=== PATIENT | male | born 1995 | race Caucasian/White ===

== ENCOUNTER 2017-10-31 11:44 | Emergency (ER) | payer SELFPAY ==
[2017-10-31 11:45] VITALS: BP 120/79; PULSE 91; RESP 16; TEMP 36.4; O2SAT 98; BMI 38.4
--- NOTE | 2017-10-31 12:13 | EKG12_ITS ---
Test Reason : SYNCOPE Blood Pressure : / mmHG Vent. Rate : 094 BPM Atrial Rate : 094 BPM P-R Int : 142 ms QRS Dur : 082 ms QT Int : 334 ms P-R-T Axes : 069 031 037 degrees QTc Int : 417 ms Normal sinus rhythm Normal ECG Confirmed by ADRIENNE FRANKEL ([id number]), editor in chief KEN HIRSCH ([id number] on 11/03/2017 1:35:57 PM Referred By: NILSA Confirmed By:ADRIENNE FRANKEL
[2017-10-31 12:26] LABS: Absolute Lymphocyte Count 2.09 X10^3/ul (0.83-4.51); Absolute Neutrophil Count 8.1 X10^3/uL (2.0-7.7); Basophil# 0.03 X10^3/uL; Basophil% 0.3 % (0-1); Eosinophil# 0.12 X10^3/uL; Eosinophils% 1.1 % (0-5); Hematocrit 55.9 % (40-54); Hemoglobin 19.6 g/dl (13.0-16.5); Lymphocyte # 2.09 X10^3/ul (4.0); Lymphocyte % 19.1 % (19-41); Mean Corp Hgb Conc 35.1 g/gl (32-36); Mean Corpuscular Hgb 29.2 pg (27.0-32.0); Mean Corpuscular Volume 83.3 fL (80-94); Mean Platelet Vol. 10.6 fl (6.2-12.0); Monocyte# 0.62 X10^3/uL; Monocyte% 5.7 % (0-10); Neutrophil # 8.05 X10^3/uL (2.7-7.7); Neutrophil % 73.5 % (47-70); POSITIVE COUNT NO; POSITIVE DIFFERENTIAL NO; POSITIVE MORPHOLOGY NO; Platelet Count 261 K/mm3 (150-450); RBC Distribution Width SD 39.9 fl (35.1-43.9); Red Blood Count 6.71 M/mm3 (4.6-6.2); White Blood Count 10.9 K/mm3 (4.4-11.0)
[2017-10-31 13:25] LABS: Anion Gap 8 (5-15); BUN 14 mg/dL (7-18); BUN/Creat Ratio 14.7 RATIO (10-20); Calcium,Total 8.1 mg/dL (8.5-10.1); Chloride 104 mmol/L (98-107); Creatinine, Serum 0.95 mg/dL (0.70-1.30); EST Glomerular Filtration Rate 107 mL/min (>60); Est Glom Filt Rate - Afr Amer 130 mL/min (>60); Estimated Creatinine Clearance 133.21 ml/min; Glucose 155 mg/dL (74-106); Potassium 3.6 mmol/L (3.5-5.1); Sodium Level 136 mmol/L (136-145)
--- NOTE | 2017-10-31 13:35 | ED.VISSUMM ---
- ER Visit Summary Date of Service: 10/31/17 Chief Complaint: Syncope History of Present Illness: The patient is a 21 M who walks to [facility] after his car ran out of gas. Patient states he felt very cold from walking outside in the heat seem to be turned up inside the store. He sat down on a bench to tie his shoe and then stood up to walk around the store. While walking around the store patient had 3 episodes of near syncope and had to sit down for a moment. He states he felt very lightheaded as if he had stood up too fast but the symptoms just did not go away quickly. He denies chest pain or palpitations. He states he currently has no symptoms. Physical Examination: Vital signs are unremarkable. Patient is in no acute distress and is nontoxic appearing. Head and neck examination is normal. Heart is regular rate and rhythm. Palpable pulses are noted throughout. Lungs are clear with good air movement throughout. Abdomen is soft and nontender. Bowel sounds are noted. Extremity examination is unremarkable with full range of motion. Neurologic examination reveals no focal deficits. Test Results: EKG is sinus at 94 with no sign of acute ischemia. CBC revealed hemoglobin of 19.6. On review of prior records hemoglobin was 17.1 in October 2016 and 16.5 in September 2014. Chemistry studies are unremarkable. Emergency Department Course and Treatment: Patient was given IV fluids here. Patient states he had been seen by about abnormal blood levels in the past. I will give him Dr. Renteria's number for follow-up. Treatment Plan: [] Disposition: Discharge Impression: 1. Near syncope 2. Polycythemia This note was generated with [employer] dictation software. It may contain incorrect words, spelling, and punctuation that were not noted in review of the chart prior to signing ED Disposition - Plan for ED Patient: Chief Complaint: Syncope Referrals: Farzaneh Wong MD [Primary Care Provider] -
--- NOTE | 2017-10-31 13:37 | ED.DEP ---
ED Disposition - Plan for ED Patient: Disposition: Home or Assisted Living Chief Complaint: Syncope Instructions: ED Near Syncope Unkn Referrals: Fazraneh Wong MD [Primary Care Provider] - 1 Week Francis Renteria MD [STAFF PHYSICIAN] - As Needed
[2017-10-31 13:46] VITALS: BP 127/51; PULSE 68; RESP 15; O2SAT 97
== END 2017-10-31 13:47 | disposition home or self-care (01) ==
PROVIDERS: Emergency Provider Emergency Medicine; Family Provider Pediatrics; PCP Pediatrics
DX: R55 Syncope and collapse (principal); D75.1 Secondary polycythemia
CPT/HCPCS: 80048; 85025; 93005; 96360; 99285; J7040

== ENCOUNTER 2019-11-13 13:47 | Emergency (ER) | payer MEDICAID, SELFPAY ==
[2019-11-13 13:48] VITALS: BP 137/93; PULSE 92; RESP 16; TEMP 36.8; O2SAT 98; BMI 51.1
--- NOTE | 2019-11-13 14:02 | ED.DCSUM_ITS ---
- ER Visit Summary Date of Service: 11/13/19 Chief Complaint: Laceration to left ring and long fingers History of Present Illness: The patient is a 23 M who presents with a laceration to his left ring and long fingers that occurred today. Patient states he got a new knife and was trying to open it. Patient states he was trying to pull on the blade to open it and did not realize there was a button that he had to push in order to open it. Patient states that while he was pulling on the blade he hit the button and the blade opened. Patient states it cut his left ring and long fingers. Patient is unsure of his last tetanus. Patient states the bleeding is been persistent. Patient admits to tingling in the tips of his ring and long fingers but denies any weakness. Patient is left-hand dominant. Patient describes his pain as throbbing and is worse with certain movements. Physical Examination: Vital signs are stable. Patient is afebrile. Patient is in no acute distress. Musculoskeletal exam reveals a 2 cm curvilinear flap laceration over the tip of the distal phalanx of the left long finger. There is also a 2 cm linear laceration through the nail plate and nail bed of the left ring finger. There is minimal gapping of the wound margins of the ring finger. There is mild gapping of the wound margins of the long finger. There is some mild bleeding noted. Sensation was intact to light touch in all digits. Capillary refill was less than 2 seconds in all digits. Strength is 5/5 in flexion and extension of the MP, PIP, and DIP joints of the left long and ring fingers. Emergency Department Course and Treatment: The left long finger was cleaned and irrigated with copious amounts normal saline. The left long finger was anesthetized 1% plain lidocaine via digital block. The wound was closed with 4 simple interrupted #4-0 nylon sutures under sterile technique. Bacitracin dressing was applied. Patient tolerated procedure well. The laceration of the left ring finger was left to heal without any sutures. There is minimal gapping. It is through the nailbed and nail plate. Patient was advised that this would heal better without sutures. Patient was instructed to keep the wounds clean and dry. Patient was instructed to follow-up with his primary care physician in 5 to 7 days for wound recheck and suture removal. Patient understood and was agreeable with the plan. All questions were answered. Fiorella patel understood and was agreeable with the plan. All questions were answered. Disposition: Discharge home Impression: Lacerations to left long and ring fingers This note was generated with [employer] dictation software. It may contain incorrect words, spelling, and punctuation that were not noted in review of the chart prior to signing ED Disposition - Plan for ED Patient: Disposition: Home or Assisted Living Diagnosis: Laceration of left middle finger w/o foreign body w/o damage to nail, Laceration of left ring finger with damage to nail w/o foreign body Instructions: ED Laceration Hand Referrals: Farzaneh Wong MD [STAFF PHYSICIAN] - 5 Days for suture removal
[2019-11-13] MEDS: Diphth,Pertuss(Acell),Tet Vac 0.5 ML Vial IM (14:21)
== END 2019-11-13 16:15 | disposition home or self-care (01) ==
PROVIDERS: Emergency Provider Emergency Medicine
DX: S61.213A Laceration without foreign body of left middle finger without damage to nail, initial encounter (principal); S61.315A Laceration without foreign body of left ring finger with damage to nail, initial encounter; W26.0XXA Contact with knife, initial encounter; Y93.9 Activity, unspecified; Y92.9 Unspecified place or not applicable; Y99.9 Unspecified external cause status; Z72.0 Tobacco use; Z23 Encounter for immunization
CPT/HCPCS: 12001; 90471; 90715; 99283

== ENCOUNTER 2020-01-20 10:31 | Emergency (ER) | payer MEDICAID, SELFPAY ==
[2020-01-20 10:32] VITALS: BP 153/95; PULSE 107; RESP 18; TEMP 36.3; O2SAT 97; BMI 47.8
--- NOTE | 2020-01-20 11:01 | ED.DCSUM_ITS ---
- ER Visit Summary Date of Service: 01/20/20 Chief Complaint: Possible infection from IV drug use History of Present Illness: The patient is a 24 M who presents with possible infection in both elbow areas from IV drug use. Patient states the areas have been reddened and swollen over the past 5 days. Patient states they started to get better. Patient states he has been using warm compresses which have been helping. Patient states the pain is worse with extension of the elbows. Patient describes pain as dull. Patient denies any fevers or chills. Patient denies any discharge or drainage. Patient denies any paresthesias or weakness. Physical Examination: Vital signs are stable. Patient is afebrile. Patient is in no acute distress. Musculoskeletal exam shows some mild tenderness in the antecubital areas bilaterally. There is some ecchymosis and induration. There is no erythema or warmth. There is no fluctuance. I do not appreciate any abscess. There is full range of motion of the elbows bilaterally. Strength is 5/5 in the radial, median, and ulnar areas bilaterally. Sensation was intact to light touch in the radial, median, and ulnar areas bilaterally. Radial pulses are equal bilaterally. Capillary refill is less than 2 seconds in all digits. Emergency Department Course and Treatment: [id number] ultrasound was used to look for possible abscess. I did not see any abscesses in the antecubital areas bilaterally. I did not see any foreign bodies. Patient was given a dose of Keflex here and was given a prescription for Keflex. Patient was instructed to continue using warm compresses. Patient was instructed to follow-up with 180 as scheduled. Patient understood and was agreeable with the plan. All questions were answered. Disposition: Discharge home Impression: Cellulitis bilateral elbows This note was generated with [employer] dictation software. It may contain incorrect words, spelling, and punctuation that were not noted in review of the chart prior to signing ED Disposition - Plan for ED Patient: Disposition: Home or Assisted Living Diagnosis: Cellulitis, History of intravenous drug abuse Prescriptions: Cephalexin [Keflex] 500 mg PO Q6 #40 cap Prescription Printed Referrals: Care Physician,No Primary [Primary Care Provider] - [facility] [STAFF PHYSICIAN] - 3-5 Days
[2020-01-20] MEDS: Cephalexin 500 MG Capsule PO (11:18)
== END 2020-01-20 11:18 | disposition home or self-care (01) ==
LOC: ED 11:07
PROVIDERS: Emergency Provider Emergency Medicine
DX: L03.114 Cellulitis of left upper limb (principal); L03.113 Cellulitis of right upper limb; E66.9 Obesity, unspecified
CPT/HCPCS: 99283

== ENCOUNTER 2021-10-18 19:07 | Emergency (ER) | payer MEDICAID, SELFPAY ==
[2021-10-18 19:08] VITALS: BP 157/91; PULSE 115; RESP 16; TEMP 35.4; O2SAT 99; BMI 42.7
--- NOTE | 2021-10-18 19:47 | EX.ED.DYSGE1 ---
HPI History of Present Illness Chief Complaint: Abscess Narrative Narrative: Patient presents with a left antecubital abscess after IV drug abuse. No fevers chills, this is been ongoing for about a week. He has no chest pain shortness of breath. No other rashes no other injuries. He does not feel ill. [facility] Medical History Overdose Substance abuse Home Medications NK 03/09/20 [History Last Taken Unknown] doxycycline hyclate 100 mg PO BID 10 Days #20 cap 10/18/21 [Rx Last Taken Unknown] Allergy/AdvReac Type Severity Reaction Status Date / Time No Known Allergies Allergy Verified 03/09/20 19:03 Social History Smoking Status: Light Smoker (<10/day) ROS ROS ED ROS Narrative Past medical history: Reviewed Medications: Reviewed Social history: Noncontributory Review of systems: All systems negative except as indicated General: No fever Eyes: No visual changes ENT: No upper airway congestion, normal voice Neck: No neck pain Cardiovascular: No chest pain Respiratory: No shortness of breath or cough Gastrointestinal: No abdominal pain, nausea vomiting or diarrhea Genitourinary: No dysuria Musculoskeletal: Left antecubital abscess Skin: As above Neurological: No memory loss, confusion or any focal weakness Psych: No recent behavioral changes Hematologic: No easy bleeding or easy bruising EXAM Physical Exam Narrative Exam Narrative: Physical exam General: Well nourished, Well developed, No Acute Distress Head: Normocephalic, Atraumatic Eyes: Conjunctiva not pale ENT: Moist mucous membranes Neck: Supple, Nontender, No lymphadenopathy Cardiovascular: Regular rate, Regular rhythm. I listened at all 4 points and there is no murmur. Respiratory: No distress, CTA bilaterally Abdomen: Soft, Nontender, Nondistended Back: Nontender, Normal Inspection. Negative for: CVA tenderness Extremities: There is a 4 cm antecubital abscess which is raised and erythematous. There is no surrounding cellulitis. No lymphadenopathy no axilla tenderness no lymphangitic streaking. Skin: As above Neurological: Alert, Normal Strength, Normal Sensation Psychological: Normal affect Const Vital Signs: 10/18/21 19:08 Temperature 95.8 F L Temperature Source Temporal Pulse Rate 115 H Respiratory Rate 16 Blood Pressure 157/91 H Blood Pressure Mean 113 Pulse Ox 99 Oxygen Delivery Method Room Air MDM MDM MDM Narrative Medical decision making narrative: Abscess was drained, at this time there is no evidence of systemic disease, no murmur or any other rash. I did warn the patient that he could develop endocarditis and valve damage or have sepsis if he continues to do this. He tells me is going to stop. Procedures Other Procedures Procedure(s): Incision and drainage Verbal consent obtained. 1% lidocaine was used, Shur-Clens 11. Blade, I made an elliptical incision and left it open, I used hemostats to probe, copious pus was expectorated. Patient tolerated procedure well Discharge Plan Triage Chief Complaint: Abscess ED Provider: Aniket Dennis Dx/Rx/DC Orders Clinical Impression: Abscess Instructions: ED Abscess Incision And Drainage Prescriptions: New doxycycline hyclate 100 mg capsule 100 mg PO BID 10 Days Qty: 20 RF: 0 No Action NK RF: 0 Primary Care Provider: Care Physician,No Primary Referrals: Care Physician,No Primary [Primary Care Provider] - 2 Days Disposition Disposition: Home, Self Care
--- NOTE | 2021-10-18 20:06 | CM.ED ---
SW Note Referral Source: Case Find Referral Reason: No PCP SW met with patient and he confirmed he has no PCP. SW provided patient with Healthcare Provider Directory. No further issues or concerns voiced. Plan: Resources provided Erica WEBER
[2021-10-18] MEDS: Doxycycline 100 MG CAPSULE PO (20:10)
[2021-10-18 20:13] VITALS: BP 148/90; PULSE 95; RESP 16
== END 2021-10-18 20:14 | disposition home or self-care (01) ==
PROVIDERS: Emergency Provider Emergency Medicine; Visit Provider Emergency Medicine
DX: L02.414 Cutaneous abscess of left upper limb (principal); F19.10 Other psychoactive substance abuse, uncomplicated; F17.200 Nicotine dependence, unspecified, uncomplicated
CPT/HCPCS: 10060; 99283

== ENCOUNTER 2021-11-24 15:53 | Emergency (ER) | payer MEDICAID, SELFPAY ==
[2021-11-24 15:54] VITALS: BP 149/102; PULSE 112; RESP 18; TEMP 36.1; O2SAT 99; BMI 43.9
--- NOTE | 2021-11-24 16:09 | EX.ED.DYSGE1 ---
HPI History of Present Illness Chief Complaint: Abscess Narrative Narrative: Patient with past medical history of previous intravenous drug abuse presents with pain and redness on the dorsum of his right hand. He states yesterday, while he had been clean for quite some time, he injected methamphetamine into the dorsum of his right hand. He felt that it was in a vein and at the last minute may have infiltrated the IV access as he states that he did get high initially, and now presents with pain and redness of his right hand. He has left hand dominant. He has had this previously and was placed on doxycycline. Admittedly, he presents for prescription for doxycycline to catch this while it is still early. He denies any fevers or chills. No nausea or vomiting. No other symptoms. [facility] Medical History Overdose Substance abuse Home Medications doxycycline hyclate 100 mg PO BID 10 Days #20 cap 10/18/21 [Rx Last Taken Unknown] doxycycline hyclate 100 mg PO BID #20 tab 11/24/21 [Rx Last Taken Unknown] Allergy/AdvReac Type Severity Reaction Status Date / Time No Known Allergies Allergy Verified 11/24/21 15:53 Social History Smoking Status: Light Smoker (<10/day) ROS ROS ED ROS Narrative Constitutional: No fever, no chills. HEENT: No sore throat. No neck pain. No loss of vision. No rhinorrhea. Cardiovascular: No chest pain. No palpitations. No pedal edema. Respiratory: No cough, no shortness of breath. Abdominal: No abdominal pain. No nausea. No vomiting. Genitourinary: No dysuria. No hematuria. Musculoskeletal: Back of right hand pain. Worse with movement of fingers at times, and stretching of the skin. Neurologic: No headaches. No dizziness. No lightheadedness. Skin: No rash. Dorsum of right hand redness. Psychiatric: No depression. No anxiety. EXAM Physical Exam Narrative Exam Narrative: Afebrile. Vital signs noted. Nontoxic-appearing. HEENT: Normocephalic. Atraumatic. PERRL, EOMI. Neck soft and supple. No point tenderness or step off. Cardiovascular: Regular rate and rhythm. No murmurs, rubs, or gallops appreciated. Respiratory: No tachypnea. Lungs clear to auscultation bilaterally. Gastrointestinal: Abdomen soft, nontender, with normoactive bowel sounds. No rebound or guarding. Neurological: Awake. Alert. Nonfocal, nonlateralizing. Skin: No rash. Mild erythema on dorsum of right hand over third metacarpal mainly. No pain with passive range of motion of fingers. Good capillary refill. Palpable radial pulse. Musculoskeletal: No pedal edema. Full range of motion extremities. Const Vital Signs: 11/24/21 15:54 Temperature 97 F L Temperature Source Temporal Pulse Rate 112 H Respiratory Rate 18 Blood Pressure 149/102 H Blood Pressure Mean 117 Pulse Ox 99 Oxygen Delivery Method Room Air MDM MDM MDM Narrative Medical decision making narrative: I do feel that the patient does have mild cellulitis from IV infiltration/infiltration of the subcutaneous tissues with methamphetamine that he injected yesterday. He was written a prescription for doxycycline for the next 10 days. He will apply warm compresses and elevate his right hand when possible. Return instructions were reviewed. He declines detox currently. Disposition is discharged home in stable condition. Discharge Plan Triage Chief Complaint: Abscess ED Provider: Randy Neri Dx/Rx/DC Orders Clinical Impression: Cellulitis of hand, IV drug abuse Instructions: ED Cellulitis Prescriptions: New doxycycline hyclate 100 mg tablet 100 mg PO BID Qty: 20 RF: 0 No Action doxycycline hyclate 100 mg capsule 100 mg PO BID 10 Days Qty: 20 RF: 0 Primary Care Provider: Care Physician,No Primary Referrals: Skye Khalil MD [STAFF PHYSICIAN] - 1 Week if not improving Care Physician,No Primary [Primary Care Provider] - Disposition Disposition: Home, Self Care
== END 2021-11-24 16:26 | disposition home or self-care (01) ==
PROVIDERS: Emergency Provider Emergency Medicine; Visit Provider Emergency Medicine
DX: L03.113 Cellulitis of right upper limb (principal); F15.10 Other stimulant abuse, uncomplicated; F17.200 Nicotine dependence, unspecified, uncomplicated
CPT/HCPCS: 99282

== ENCOUNTER 2022-05-26 01:05 | Emergency (ER) | payer MEDICAID, SELFPAY ==
[2022-05-26 01:06] VITALS: BP 152/89; PULSE 112; RESP 22; TEMP 36.6; O2SAT 100; BMI 44.9
--- NOTE | 2022-05-26 01:15 | RAD_ITS ---
STUDY: X-RAY - LEFT FOOT CLINICAL: Male, 26 years old. Cellulitis after IV drug use TECHNIQUE: view(s) of the foot. COMPARISON: None. FINDINGS: BONES: No fracture demonstrated. JOINTS: No dislocation. SOFT TISSUES: Diffuse soft tissue swelling mainly dorsally. No radiopaque foreign body identified. RAD/Foot min 3 Views IMPRESSION: Soft tissue swelling. No radiopaque foreign body. Electronically Signed: Jennifer Parker MD at 1:44 EDT ,
--- NOTE | 2022-05-26 01:43 | EDS_ITS ---
HPI History of Present Illness Chief Complaint: Cellulitis Informant: patient Narrative Narrative: Patient has a long history of IV drug use of methamphetamines. He injected in the top of his foot on Friday evening. He states he might have missed the vein for part of it. was little sore after working. Friday seem to be better until he got off of work today and he notices more red and swollen. He has no fevers chills sweats nausea or vomiting. He states he has had these a lot. He responds to doxycycline. He would just like to get a prescription. No other complaints. No chest pain headaches or rashes other than the foot. [facility] Medical History Overdose Substance abuse Home Medications doxycycline monohydrate 100 mg capsule 100 mg PO BID #20 caps 05/26/22 [Rx Last Taken Unknown] Allergy/AdvReac Type Severity Reaction Status Date / Time No Known Allergies Allergy Verified 11/24/21 15:53 Surgical History S/P trigger finger release Social History Smoking Status: Light Smoker (<10/day) ROS ROS ED Constitutional Constitutional ED: Denies chills, fever(s) or subjective Eyes Eyes: Denies change in vision ENT ENT ED: Denies rhinorrhea or sore throat Cardiovascular Cardiovascular: Denies chest pain, orthopnea, palpitations, paroxysmal nocturnal dyspnea or racing heartbeat Respiratory/Chest Respiratory/Chest: Denies cough, dyspnea, dyspnea on exertion, orthopnea or paroxysmal nocturnal dyspnea Gastrointestinal Gastrointestinal: Denies nausea or vomiting Genitourinary Genitourinary ED: Denies dysuria Musculoskeletal Musculoskeletal: Reports other Details: Isolated left foot pain ; Denies myalgias Integumentary Reports rash Neurologic Neurologic: Denies paresthesias Endocrine Endocrinology: Denies polydipsia or polyuria Hematologic/Lymphatic Hematologic/Lymphatic: Denies easy bleeding or easy bruising Allergic/Immunologic Allergic/Immunologic ED: Denies urticaria EXAM Physical Exam Const Vital Signs: 05/26/22 01:06 Temperature 97.9 F Temperature Source Temporal Pulse Rate 112 H Respiratory Rate 22 H Blood Pressure 152/89 H Blood Pressure Mean 110 Pulse Ox 100 Oxygen Delivery Method Room Air Positive well nourished and well developed Constitutional Narrative: Patient is nontoxic in appearance. General Appearance ED: well developed and NAD HEENT Reports moist mucous membranes Eyes General Eye ED: Negative for pale conjunctiva or scleral icterus Neck no lymphadenopathy Chest Wall inspection of chest normal Resp normal respiratory effort and clear to auscultation bilaterally Auscultation: Negative for rales, rhonchi or wheezes Cardio regular rhythm Rate: tachycardic and other Other Details: Heart rate is about 95 when I see him . There is no murmur. GI normal to inspection, nondistended, normoactive bowel sounds Back/Spine no CVA tenderness Extremity Extremity Narrative: He has erythema to the dorsum of the left foot. There is an area that looks like he probably had an injection site. No crepitance. No fluctuance. I did do bedside ultrasound and Sholl no fluid collection. Peripheral pulses are normal. I see no Osler nodes or Janeway lesions or splinter hemorrhages on the feet or hands. Neuro oriented x3 and no sensory deficits noted Sensorium / Orientation: Negative for lethargic or stuporous Motor Exam: strength 5/5 throughout Psych mental status grossly normal Mood & Affect: Negative for anxious Skin Skin Narrative: Erythema and warmth to the top of the left foot as above. MDM MDM MDM Narrative Medical decision making narrative: X-ray shows some soft tissue swelling but no foreign body or gas. Bedside ultrasound showed no fluid collection. We will get him on doxycycline which has been effective for him in the past. We did discuss reasons to return. Radiography Diagnostic Testing: Clinical Impression(s) from Imaging Studies Foot X-Ray 05/26/22 01:15 IMPRESSION: Soft tissue swelling. No radiopaque foreign body. Electronically Signed: Jennifer Parker MD at 1:44 EDT , Three-view x-ray left foot looked at by me and read by radiology shows some soft tissue swelling but no other acute process. Discharge Plan Triage Chief Complaint: Cellulitis ED Provider: Iron [place] Dx/Rx/DC Orders Clinical Impression: Cellulitis of foot, left, Active intravenous drug use Instructions: Cellulitis Dc Prescriptions: New doxycycline monohydrate 100 mg capsule 100 mg PO BID Qty: 20 0RF Primary Care Provider: Care Physician,No Primary Referrals: Renzo Pardo MD [Med Staff - Refinery Superintendent] - 2 Days for wound check Care Physician,No Primary [Primary Care Provider] - Disposition Disposition: Home, Self Care
[2022-05-26] MEDS: Doxycycline 100 MG CAPSULE PO (01:50)
[2022-05-26 01:51] VITALS: BP 137/79; PULSE 89; RESP 16; O2SAT 97
--- NOTE | 2022-05-26 10:07 | ED.RN ---
CALLED IN PRESCRIPTION FOR DOXY TO [facility] PER PT REQUEST BECAUSE HIS PHARMACY IS CLOSED
== END 2022-05-26 01:56 | disposition home or self-care (01) ==
PROVIDERS: Emergency Provider Emergency Medicine; Visit Provider Emergency Medicine
DX: L03.116 Cellulitis of left lower limb (principal); F17.200 Nicotine dependence, unspecified, uncomplicated
CPT/HCPCS: 73630; 99283